=== PATIENT | male | born 2000 | race Caucasian/White ===

== ENCOUNTER 2023-12-09 10:59 | Outpatient (CLI) | payer BC, SELFPAY | END 2023-12-09 11:00 | disposition home or self-care (01) | PROVIDERS: PCP Physician Assistant Medical; Visit Provider Physician Assistant Medical | DX: Z00.00 Encounter for general adult medical examination without abnormal findings (principal); R20.2 Paresthesia of skin; R53.83 Other fatigue; R73.03 Prediabetes; E66.9 Obesity, unspecified; Z13.29 Encounter for screening for other suspected endocrine disorder; Z13.6 Encounter for screening for cardiovascular disorders | CPT/HCPCS: 80053; 80061; 82306; 82607; 82746; 84403; 84425; 84443 ==

== ENCOUNTER 2023-12-17 14:06 | Outpatient (CLI) | payer BC, SELFPAY ==
--- NOTE | 2023-12-17 14:30 | MR_ITS ---
Patient: NAGA FRANCIS Facility:?[facility] Patient ID:?[id number] Site Patient ID:?[id number]. Site :?[id number] Study:?MRI-Head W/O-12/17/2023 3:11:17 PM Ordering Physician:?RITCHIE PIERSON Final Report: Indication: Headaches and arm spasms Technique: Noncontrast sagittal T1 weighted, axial FLAIR, axial T2 weighted, and axial diffusion weighted sequences are provided. Comparison: No prior studies available for comparison at this institution. Findings: The ventricles, sulci and gyri are normal size, shape and contour for age. The midline structures are centrally located with no evidence of shift. The pituitary gland and optic chiasm are unremarkable. Low-lying cerebellar tonsils with otherwise normal morphology likely incidental finding. No suspicious intra or extra-axial fluid collections. No region of restricted diffusion. Expected flow voids in the cavernous carotids and basilar artery. Minimal mucosal thickening in the left frontal sinus, sphenoid sinuses, ethmoid air cells and maxillary sinuses. Mild rightward deviation of the nasal septum. Impression: 1. No evidence of acute intracranial abnormality. 2. Low-lying cerebellar tonsils with otherwise normal morphology likely an incidental finding. Dictated by Willard Callaway MD @ 12/22/2023 9:02:53 PM Dictated by: Willard Callaway MD @ 12/22/2023 21:03:02 Signed by:?Willard Callaway MD @12/22/2023 9:03:02 PM (Electronic Signature)
== END 2023-12-17 14:07 | disposition home or self-care (01) ==
PROVIDERS: PCP Physician Assistant Medical; Visit Provider Physician Assistant Medical
DX: R51.9 Headache, unspecified (principal); R20.2 Paresthesia of skin
CPT/HCPCS: 70551

== ENCOUNTER 2024-01-21 09:29 | Outpatient (CLI) | payer BC, SELFPAY | END 2024-01-21 09:30 | disposition home or self-care (01) | LOC: NFLDREF 01-24 07:38 | PROVIDERS: PCP Physician Assistant Medical; Referring Provider Physician Assistant Medical; Visit Provider Physician Assistant Medical | DX: R79.89 Other specified abnormal findings of blood chemistry (principal); F41.9 Anxiety disorder, unspecified; E66.01 Morbid (severe) obesity due to excess calories; F32.A Depression, unspecified; R20.2 Paresthesia of skin | CPT/HCPCS: 84403 ==

== ENCOUNTER 2024-01-30 09:11 | Outpatient (CLI) | payer BC, SELFPAY | END 2024-01-30 09:12 | disposition home or self-care (01) | LOC: NFLDREF 02-01 05:43 | PROVIDERS: PCP Physician Assistant Medical; Referring Provider Physician Assistant Medical; Visit Provider Physician Assistant Medical | DX: R79.89 Other specified abnormal findings of blood chemistry (principal) | CPT/HCPCS: 83001; 83002; 84146; 84403 ==